=== PATIENT | female | born 1945 ===

== ENCOUNTER 2021-10-03 18:37 | Emergency (ER) | payer SELFPAY ==
[~2021-10-03] VITALS: Ht 154.9 cm; Wt 61.0 kg
[2021-10-03 18:48] VITALS: BP 132/76
--- NOTE | 2021-10-03 19:01 | NUR ---
SPOKE TO PA AT TRIAGE. ONLY ORDER FOR NOW IS CXR PER PA.
--- NOTE | 2021-10-03 20:06 | NUR ---
SPOKE TO DR ROSA PA HAS LEFT. HE GAVE VO FOR CBC, CMP, TROPS, PROBNP, AND D-DIMMER. ORDERS PLACED.
[2021-10-03 20:46] LABS: D-DIMER 0.71 MG/L FEU (0-0.50)
[2021-10-03 20:56] LABS: BASOPHILS % (AUTO) 0.3 % (0-1); EOSINOPHILS # (AUTO) 0.2 X10'3 (0-0.9); EOSINOPHILS % (AUTO) 1.9 % (0-6); HEMATOCRIT 37.6 % (35.0-45.0); HEMOGLOBIN 12.5 g/dl (12.0-16.0); LYMPHOCYTES # (AUTO) 1.7 X10'3 (1.1-4.8); LYMPHOCYTES % (AUTO) 18.9 % (21-51); MEAN CORPUSCULAR HEMOGLOBIN 28.7 PG (27.0-31.0); MEAN CORPUSCULAR HGB CONC 33.2 g/dL (33.0-36.5); MEAN CORPUSCULAR VOLUME 86.5 FL (78-98); MEAN PLATELET VOLUME 9.1 FL (7.4-10.4); MONOCYTES % (AUTO) 11.8 % (2-12); NEUTROPHILS # (AUTO) 5.9 X10'3 (1.8-7.7); NEUTROPHILS % (AUTO) 67.1 % (42-75); PLATELET COUNT 205 X10'3 (140-440); RED BLOOD COUNT 4.35 X10'6 (4.20-5.60); RED CELL DISTRIBUTION WIDTH 13.7 % (11.5-14.5); WHITE BLOOD COUNT 8.8 X10'3 (4.5-11.0)
[2021-10-03 20:57] LABS: ALANINE AMINOTRANSFERASE 54 U/L (12-78); ALBUMIN/GLOBULIN RATIO 0.7 (1.1-1.5); ALKALINE PHOSPHATASE 71 IU/L (46-116); ANION GAP 10 (8-16); ASPARTATE AMINO TRANSFERASE 38 U/L (10-37); BILIRUBIN,TOTAL 0.4 MG/DL (0.1-1.0); BLOOD UREA NITROGEN 14 MG/DL (7-18); BUN/CREATININE RATIO 18.4 (6.6-38.0); CALCIUM 9.1 MG/DL (8.5-10.1); CHLORIDE 96 MMOL/L (99-107); CREATININE 0.76 MG/DL (0.40-0.90); GLUCOSE 141 MG/DL (70-104); SODIUM 134 MMOL/L (135-145); TOTAL CARBON DIOXIDE 28.2 MMOL/L (24-32); TOTAL PROTEIN 7.4 G/DL (6.4-8.2); eGFR 74 ML/MIN
[2021-10-03 21:00] LABS: POTASSIUM 2.9 MMOL/L (3.5-5.1)
--- NOTE | 2021-10-03 22:03 | NUR ---
PT COMPLAINED OF HYPOGYLCEMIA D/T NOT EATING WHILE IN LOBBY. CHECKED GLUCOSE. BG FOUND 161. PROVIDED PT W/ HIEU.
--- NOTE | 2021-10-03 22:04 | NUR ---
PT NOT IN LOBBY
== END 2021-10-03 23:43 | disposition left against medical advice (07) ==
LOC: ER 18:38
DX: Z53.21 Procedure and treatment not carried out due to patient leaving prior to being seen by health care provider (principal); U07.1 COVID-19
CPT/HCPCS: 36415; 71045; 80053; 82948; 83880; 84484; 85025; 85379; 93005